=== PATIENT | female | born 1990 | race Hispanic/Latino ===

== ENCOUNTER 2020-10-03 18:01 | Emergency (ER) | payer OTHER ==
[~2020-10-03] VITALS: Ht 160 cm; Wt 80.7 kg
[2020-10-03] MEDS ORDERED: PYRI25TA2 PO (18:07)
[2020-10-03] MEDS ORDERED: PRENTAB7 PO (18:07)
[2020-10-03 19:55] LABS: BASO % 0.2 % (0.0-1.0); EOS % 0.2 % (0.0-3.0); HEMATOCRIT 39.5 % (36.0-47.0); HEMOGLOBIN 13.3 g/dl (12.0-15.5); LYMPH # 1.9 10^3/uL (1.5-5.0); LYMPH % 15.4 % (24.0-44.0); MEAN CORPUSCULAR HEMOGLOBIN 32.2 pg (27.0-33.0); MEAN CORPUSCULAR HGB CONC 33.7 g/dl (32.0-36.5); MEAN CORPUSCULAR VOLUME 95.6 fl (80.0-96.0); MONO # 0.8 10^3/uL (0.0-0.8); MONO % 6.4 % (2.0-8.0); NEUTROPHILS # 9.4 10^3/uL (1.5-8.5); NEUTROPHILS % 77.5 % (36.0-66.0); PLATELET COUNT, AUTOMATED 343 10^3/uL (150-450); RED BLOOD COUNT 4.13 10^6/uL (4.00-5.40); WHITE BLOOD COUNT 12.1 10^3/uL (4.0-10.0)
[2020-10-03 20:34] LABS: BLOOD UREA NITROGEN 8 MG/DL (7-18); CALCIUM LEVEL 9.9 MG/DL (8.5-10.1); CHLORIDE LEVEL 105 MEQ/L (98-107); CREATININE FOR GFR 0.61 MG/DL (0.55-1.30); GLOMERULAR FILTRATION RATE > 60.0 (>60); GLUCOSE, FASTING 92 MG/DL (70-100); SODIUM LEVEL 137 MEQ/L (136-145)
--- NOTE | 2020-10-03 20:35 | REPVR ---
PROCEDURE INFORMATION: Exam: US First Trimester, Transabdominal Exam date and time: 10/03/2020 8:03 PM Age: 29 years old Clinical indication: Pain; Other: Spotting; Gestational age or lmp: 7wks; ; Additional info: 7 weeks ; Pelvic cramping/spotting TECHNIQUE: Imaging protocol: Real-time transabdominal obstetrical ultrasound of the maternal pelvis and a first trimester , less than 14 weeks 0 days, with image documentation. COMPARISON: No relevant prior studies available. FINDINGS: Gestation: Single gestational sac demonstrated within the uterus. Single pole measuring 10.1 mm demonstrated. 4 mm yolk sac demonstrated. Embryonic/ heart rate: heart rate 140 bpm. Placenta: Unremarkable. No subchorionic bleed. Amniotic fluid: Amniotic fluid is normal for gestational age. BIOMETRY: Gestational age (AUA): Gestational age is 7 weeks 1 day based on crown-rump length measurement. Gestational age based on LMP of 08/15/2020 is 7 weeks with an BESSY of 05/22/2021. MATERNAL: Uterus: Unremarkable. Cervix: Unremarkable. Right adnexa: Unremarkable. Left adnexa: Unremarkable. Intraperitoneal space: No intraperitoneal free fluid. IMPRESSION: Unremarkable 1st trimester scan as described above. Detailed structural survey can be performed between 19-20 weeks if clinically desired. Electronically signed by: Tramaine Rojo On 10/03/2020 20:36:07 PM
[2020-10-03 20:42] LABS: CARBON DIOXIDE LEVEL 24 MEQ/L (21-32)
[2020-10-03] MEDS ORDERED: MACR100C43 PO (21:17)
[2020-10-03 21:26] VITALS: BP 110/62
== END 2020-10-03 21:27 | disposition home or self-care (01) ==
LOC: M ED 18:01
DX: O20.0 Threatened abortion (principal); Z3A.01 Less than 8 weeks gestation of pregnancy; Z88.0 Allergy status to penicillin

== ENCOUNTER 2020-10-05 11:43 | Emergency (ER) | payer OTHER ==
[~2020-10-05] VITALS: Ht 160 cm; Wt 80.4 kg
[~2020-10-05 11:43] MED LIST: MACR100C43 PO; PRENTAB7 PO; PYRI25TA2 PO
[2020-10-05 13:16] LABS: BASO % 0.1 % (0.0-1.0); EOS % 0.1 % (0.0-3.0); HEMATOCRIT 40.4 % (36.0-47.0); HEMOGLOBIN 13.4 g/dl (12.0-15.5); LYMPH # 2.2 10^3/uL (1.5-5.0); MEAN CORPUSCULAR HEMOGLOBIN 32.4 pg (27.0-33.0); MEAN CORPUSCULAR HGB CONC 33.2 g/dl (32.0-36.5); MEAN CORPUSCULAR VOLUME 97.8 fl (80.0-96.0); MONO # 0.7 10^3/uL (0.0-0.8); MONO % 6.4 % (2.0-8.0); NEUTROPHILS # 8.1 10^3/uL (1.5-8.5); PLATELET COUNT, AUTOMATED 361 10^3/uL (150-450); RED BLOOD COUNT 4.13 10^6/uL (4.00-5.40)
[2020-10-05 14:08] LABS: BLOOD UREA NITROGEN 9 MG/DL (7-18); CALCIUM LEVEL 9.5 MG/DL (8.5-10.1); CARBON DIOXIDE LEVEL 25 MEQ/L (21-32); CHLORIDE LEVEL 105 MEQ/L (98-107); CREATININE FOR GFR 0.56 MG/DL (0.55-1.30); GLOMERULAR FILTRATION RATE > 60.0 (>60); GLUCOSE, FASTING 85 MG/DL (70-100); HCG, SERUM QUANTITATIVE 68982 MIU/ML; POTASSIUM SERUM 4.1 MEQ/L (3.5-5.1); SODIUM LEVEL 137 MEQ/L (136-145)
--- NOTE | 2020-10-05 15:25 | REP ---
INDICATION: vaginal bleeding (auger machine offbearer request repeat US). COMPARISON: 10/03/2020. TECHNIQUE: Real-time sonographic evaluation of gravid uterus performed. FINDINGS: There is a single living intrauterine gestation. The estimated gestational age is 7 weeks 4 days based on a crown-rump length of 14 mm, EDC 05/20/2021. heart rate is 158 beats per minute. There is no subchorionic hemorrhage. No definite maternal adnexal region abnormality is seen. IMPRESSION: Viable intrauterine gestation 7 weeks 4 days gestational age, heart rate 150 beats per minute. No subchorionic hemorrhage. <Electronically signed by Femi Ziegler > 10/05/20 [id number]
[2020-10-05 15:52] VITALS: BP 128/71
[2020-10-05 17:07] LABS: CHLAMYDIA DNA AMPLIFICATION NEGATIVE (NEGATIVE); GC DNA AMPLIFICATION NEGATIVE (NEGATIVE)
== END 2020-10-05 15:52 | disposition home or self-care (01) ==
LOC: M ED 11:43
DX: O26.859 Spotting complicating pregnancy, unspecified trimester (principal); Z88.0 Allergy status to penicillin; Z3A.01 Less than 8 weeks gestation of pregnancy

== ENCOUNTER 2020-11-22 11:46 | Emergency (ER) | payer OTHER ==
[~2020-11-22] VITALS: Ht 160 cm; Wt 81.4 kg
[2020-11-22 11:46] VITALS: BP 121/70
[2020-11-22 13:40] LABS: BASO % 0.2 % (0.0-1.0); EOS % 0.3 % (0.0-3.0); HEMATOCRIT 38.1 % (36.0-47.0); HEMOGLOBIN 12.9 g/dl (12.0-15.5); LYMPH # 2.2 10^3/uL (1.5-5.0); LYMPH % 18.5 % (24.0-44.0); MEAN CORPUSCULAR HEMOGLOBIN 32.8 pg (27.0-33.0); MEAN CORPUSCULAR HGB CONC 33.9 g/dl (32.0-36.5); MEAN CORPUSCULAR VOLUME 96.9 fl (80.0-96.0); MONO # 0.7 10^3/uL (0.0-0.8); MONO % 6.1 % (2.0-8.0); NEUTROPHILS # 8.8 10^3/uL (1.5-8.5); NEUTROPHILS % 74.6 % (36.0-66.0); PLATELET COUNT, AUTOMATED 346 10^3/uL (150-450); RED BLOOD COUNT 3.93 10^6/uL (4.00-5.40); WHITE BLOOD COUNT 11.8 10^3/uL (4.0-10.0)
[2020-11-22 14:04] LABS: BLOOD UREA NITROGEN 8 MG/DL (7-18); CALCIUM LEVEL 9.4 MG/DL (8.5-10.1); CARBON DIOXIDE LEVEL 25 MEQ/L (21-32); CHLORIDE LEVEL 105 MEQ/L (98-107); GLOMERULAR FILTRATION RATE > 60.0 (>60); GLUCOSE, FASTING 87 MG/DL (70-100); POTASSIUM SERUM 4.1 MEQ/L (3.5-5.1); SODIUM LEVEL 137 MEQ/L (136-145)
[2020-11-22 14:07] LABS: HCG, SERUM QUALITATIVE POSITIVE (NEGATIVE)
[2020-11-22] MEDS ORDERED: ONDANSETRON 4 MG ORAL DISINTEGRATING TAB PO ONE (17:10)
--- NOTE | 2020-11-22 18:39 | REP ---
INDICATION: R flank pain, 14 wks preg, r/o kidney stone COMPARISON: None TECHNIQUE: Real time solitario scale ultrasound examination using curved array transducer. FINDINGS: Bilateral kidneys are normal in contour, size, echogenicity, and reniform shape. Right kidney measures 11.7 x 5.8 x 6.2 cm with 6 mm nonobstructing calculus. No hydronephrosis, cystic or renal mass lesion. Left kidney measures 10.6 x 5.3 x 6.6 cm without hydronephrosis, nephrolithiasis, cystic or renal mass lesion. Bladder is grossly unremarkable. Ureteral jets were not identified during exam. IMPRESSION: 1. Nonobstructing right renal calculus suggested. 2. No evidence for hydronephrosis. <Electronically signed by Markie Vanegas > 11/22/20 [id number]
--- NOTE | 2020-11-22 18:42 | REP ---
INDICATION: R flank pain, 14 wks preg, pls look at appendix COMPARISON: None. TECHNIQUE: B-mode ultrasound examination along with Doppler evaluation. FINDINGS: Limited ultrasound examination of the right lower quadrant demonstrates no obvious evidence for appendicitis. The right ovary measures 3.3 x 2.5 x 1.4 cm and demonstrates satisfactory flow (RI 0.52), and includes a 1.9 x 1.4 x 1.0 cm complex cyst possibly involuting corpus luteum. IMPRESSION: No evidence for appendicitis. <Electronically signed by Markie Vanegas > 11/22/20 [id number]
== END 2020-11-22 20:08 | disposition home or self-care (01) ==
LOC: M ED 11:46
DX: O26.899 Other specified pregnancy related conditions, unspecified trimester (principal); R10.31 Right lower quadrant pain; Z3A.14 14 weeks gestation of pregnancy; Z88.0 Allergy status to penicillin
CPT/HCPCS: 36415; 76775; 76857; 80048; 81001; 84703; 85025; 87086; 99282; Q0162

== ENCOUNTER 2021-04-12 16:27 | Outpatient (CLI) | payer OTHER ==
[~2021-04-12] VITALS: Ht 160 cm; Wt 95.4 kg
[2021-04-12 16:41] VITALS: BP 136/83
[2021-04-12] MEDS ORDERED: LR 1,000 ML IV ONE (17:30)
[2021-04-12] MEDS ORDERED: cefTRIAXone SOD 1 GM in D5W MINI-BAG PLUS 50 ML IV ONE (18:45)
[2021-04-12] MEDS ORDERED: MACR100C43 PO (19:18)
--- NOTE | 2021-04-12 19:37 | IPNPDOC ---
Text Note Date of Service The patient was seen on 04/12/21. NOTE Vital Signs Label Value Date Time Pulse 104 04/12/21 1641 Blood Pressure Assessment 136/83 (100) 04/12/21 1641 Source Automatic Cuff (NIBP) Item Value Date Time Urine Color YELLOW 04/12/21 1700 Urine Appearance HAZY 04/12/21 1700 Urine pH 7.0 UNITS 04/12/21 1700 Urine Specific [place] 1.004 04/12/21 1700 Urine Protein NEGATIVE mg/dL 04/12/21 1700 Urine Glucose (UA) NEGATIVE mg/dL 04/12/21 1700 Urine Ketones NEGATIVE mg/dL 04/12/21 1700 Urine Blood NEGATIVE 04/12/21 1700 Urine Nitrite NEGATIVE 04/12/21 1700 Urine Bilirubin NEGATIVE 04/12/21 1700 Urine Urobilinogen 0.2 mg/dL 04/12/21 1700 Urine Leukocyte Esterase 3+ H 04/12/21 1700 Urine WBC (Auto) 64 /HPF H 04/12/21 1700 Urine RBC (Auto) 2 /HPF 04/12/21 1700 Urine Hyaline Casts (Auto) 0 /LPF 04/12/21 1700 Urine Bacteria (Auto) 2+ H 04/12/21 1700 Urine Squamous Epithelial Cells 2 /HPF 04/12/21 1700 04/12/211999 PATIENT 30 YO SEEN IN TRIAGE COMPLAINTS OF VAGINAL DISCHARGE GREEN BUT NOT HAVING IT NOW . DENIES SROM NO VAGINAL BLEEDING NO CONTRACTIONS RISK FACTORS KIDNEY STONE HISTORY FREQUENT UTI PREVIOUS CS AT 42 WEEKS PHYSICAL EXAMINATION NO ACUTE DISTRESS CATEGORY 1 STRIP NO CONTRACTIONS NO DECELERATIONS MODERATE VARIABILITY . CONSENT STERILE EXAMINATION NO EVIDENCE GREEN DISCHARGE CERVIX CLOSED CULTURES FOR G AND C STREP B . NO EVIDENCE SROM URINE SHOWS EVIDENCE OF UTI PLAN IV ANTIBIOTICS TO FOLLOW WITH ORAL MEDICATION AND AGUILAR POST MEDICATION PATIENT EXPRESSED UNDERSTANDING . WILL BE DISCHARGED POST IV ANTIBIOTICS PATIENT DISCHARGED UNDELIVERED Jose Eldridge MD Apr 12, 2021 19:30
== END 2021-04-12 19:45 | disposition home or self-care (01) ==
LOC: M LDO 16:27
PROVIDERS: ATTEND Obstetrics & Gynecology
DX: O26.899 Other specified pregnancy related conditions, unspecified trimester (principal); O34.219 Maternal care for unspecified type scar from previous cesarean delivery; Z3A.00 Weeks of gestation of pregnancy not specified
CPT/HCPCS: 59025; 81001; 87081; 87086; 87110; 87186; 96365; G0378; G0463; J0696

== ENCOUNTER 2021-05-11 09:14 | Inpatient (IN) | payer OTHER ==
[2021-05-11] VITALS (8 sets, daily range): BP systolic 130–169; BP diastolic 75–96
[~2021-05-11] VITALS: Ht 160 cm; Wt 97.8 kg
--- OUTSIDE RECORDS SUMMARY | 2021-05-11 09:44 | CCD ---
Author Author [facility] Organization [facility] Address Unknown Phone Unavailable Care Team Providers Care Adventure Challenge Instructor Name Role Phone NosalAlicia MD Unavailable Unavailable Nosal, Alicia Yo MD Unavailable Unavailable Nosal, Alicia Yo MD Unavailable Unavailable Nosal, Alicia Yo MD Unavailable Unavailable NosalAlicia MD Unavailable Unavailable Nosal, Alicia Yo MD Unavailable Unavailable NosalAlicia MD Unavailable Unavailable NosalAlicia MD Unavailable Unavailable Nosal, Alicia Yo MD Unavailable Unavailable Nosal, Alicia Yo MD Unavailable Unavailable Corina Malone Unavailable + Corina Malone Unavailable Corina Malone Unavailable + Cristina Casey Unavailable Unavailable Pumarol, Alba Unavailable Pumarol, Alba Unavailable Pumarol, Alba Unavailable Pumarol, Alba Unavailable Pumarol, Alba Unavailable Pumarol, Alba Unavailable Pumarol, Alba Unavailable TESTING, CAMILLE LINN Unavailable Unavailable NURSING, KAVEH Unavailable Unavailable CAMEAUMARLEY Unavailable Unavailable Re-disclosure Warning The records that you are about to access may contain information from federally-assisted alcohol or drug abuse programs. If such information is present, then the following federally mandated warning applies: This information has been disclosed to you from records protected by federal confidentiality rules (42 CFR part 2). The federal rules prohibit you from making any further disclosure of this information unless further disclosure is expressly permitted by the written consent of the person to whom it pertains or as otherwise permitted by 42 CFR part 2. A general authorization for the release of medical or other information is NOT sufficient for this purpose. The Federal rules restrict any use of the information to criminally investigate or prosecute any alcohol or drug abuse patient.The records that you are about to access may contain highly sensitive health information, the redisclosure of which is protected by Article 27-F of the [facility] Public Health law. If you continue you may have access to information: Regarding HIV / AIDS; Provided by facilities licensed or operated by the [facility] Office of Mental Health; or Provided by the [facility] Office for People With Developmental Disabilities. If such information is present, then the following [facility] mandated warning applies: This information has been disclosed to you from confidential records which are protected by state law. State law prohibits you from making any further disclosure of this information without the specific written consent of the person to whom it pertains, or as otherwise permitted by law. Any unauthorized further disclosure in violation of state law may result in a fine or residential sentence or both. A general authorization for the release of medical or other information is NOT sufficient authorization for further disc losure. Encounters Encounter Providers Location Date Indications Data Source(s ) Outpatient Attender: Sanaz Uribe MD 08/06/2020 01:47:14 AM EST [facility] Patient admitted. Outpatient Attender: Corina Malone 07/23/2020 12:27:51 PM EST [facility] Patient admitted. Outpatient Attender: Cristina Casey 06/25/2020 03:57:10 PM EST [facility] Patient admitted. Outpatient Attender: KAVEH BRUNER 09/2020 03:05:57 PM EST - 06/25/2020 07:34:13 PM EST [facility] Patient admitted. Outpatient Attender: Cheyenne Cummings 06/07/2020 04:59:[address] [facility] Patient admitted. Outpatient Attender: Cheyenne Cummings 06/07/2020 10:20:[address] [facility] Patient admitted. Outpatient Attender: MARLEY WADE 06/06/2020 03:40:08 PM EST [facility] Patient admitted. Outpatient Attender: KAVEH MCLAUGHLIN 05/22 10:18:09 AM EST - 06/05/2020 10:35:39 AM EST [facility] Patient admitted. Outpatient Attender: Cristina Casey 06/05/2020 09:07:15 AM EST [facility] Patient admitted. Outpatient Attender: Corina Malone 04/20/2020 11:39:13 AM EDT [facility] Patient admitted. Immunizations Vaccine Date Status Description Data Source(s) 06/05/2020 12:00:00 AM EST completed <td I D="[id number]">Tuberculin Test</td><td>06/05/2020, 10/23/2016</td><td></td> [facility] Medications No Information Insurance Providers Payer name Policy type / Coverage type Policy ID Covered democrat ID Covered democrat's relationship to collier Policy Collier Plan Information [facility]NA [facility] [id number] Child [id number] [facility] [id number] Self [id number] [facility] [id number] Self [id number] [facility] [id number] Self [id number] [facility] [id number] Self [id number] [facility] Medicaid Mgd Care 156 xxxxxxxx 156 [facility] Medicaid Mgd Care 156 [id number] 156 [employer] [id number] Self [id number] [facility] [id number] Self [id number] [facility] [id number] Self [id number] [employer] Medicaid Mgd Care 156 [id number] 156 [employer] Medicaid Mgd Care 156 [id number] 156 [facility] [id number] Self [id number] [facility] [id number] Self [id number] [facility] [id number] Self [id number] [facility] POS/EPO [id number] [phone] [phone] [facility] POS/EPO [id number] xxxxxxxxx [phone] [employer] [id number] Self [id number] [employer] Medicaid Mgd Care [id number] [employer] Medicaid Mgd Care 156 [id number] 156 [employer] [id number] Self [id number] [employer] Medicaid Mgd Care 156 xxxxxxxx 156 [employer] Medicaid Mgd Care 156 xxxxxxxx 156 [facility] Indemnity [phone] [facility] [id number] Problems, Conditions, and Diagnoses Code Display Name Description Problem Type Effective Dates Data Source(s) Z23 Encounter for immunization Encounter for immunization Diagnosis 08/06/2020 01:47:14 AM EST [facility] Dental Filling Dental Filling Diagnosis 06/25/2020 03:57: 10 PM EST [facility] Z20.822 Contact with and (suspected) exposure to covid-19 Contact with and (suspected) exposure to covid-19 Diagnosis 06/25/2020 03:05:57 PM EST [facility] PPD Reading PPD Reading Diagnosis 06/07/2020 04:59:45 PM EST [facility] Follow-up for: Follow-up for: Diagnosis 06/06/2020 03:40: 08 PM EST [facility] Z11.1 Encounter for screening for respiratory tuberculosis Encounter for screening for respiratory tuberculosis Diagnosis 06/05/2020 10:18:09 A M EST [facility] Z02.9 Encounter for administrative examination s, unspecified Encounter for administrative examinations, unspecified Diagnosis 06/05/2020 10:18:09 AM EST [facility] Comp Exam (Comprehensive Exam) Comp Exam (Comprehensiv e Exam) Diagnosis 06/05/2020 09:07:15 AM EST [facility] Cleaning Cleaning Diagnosis 06/05/2020 09:07:15 AM ES T [facility] Surgeries/Procedures Procedure Description Date Indications Data Source(s) 3 O RESIN COMPOS - 1 SURFACE POSTERIOR <td>3 O RESIN C OMPOS - 1 SURFACE POSTERIOR</td><td>Routine</td><td>06/25/2020 4:00 PM EST</td><td></td><td></td> 06/25/2020 04:00:00 PM EST [facility] PPD-TB INTRADERMAL TEST <td>PPD-TB INTRADERMAL TEST</td><td>Routine</td><td>06/05/2020 10:29 AM EST</td><td> Screening examination for pulmonary tuberculosis</td><td></td> 06/05/2020 10:29:16 AM EST Screening examination for pulmonary tuberculosis [facility] Screening examination for pulmonary tube rculosis ORAL HYGIENE INSTRUCTIONS <td>ORAL HYGIENE INSTRUCTIONS</td><td>Routine</td><td>06/05/2020 9:30 AM EST</td><td> Encounter for dental examination and cleaning without abnormal findings</td><td></td> 06/05/2020 09:30:00 AM EST Encounter for dental examination and cleaning without abnormal findings [facility] Encounter for dental examination and magda aning without abnormal findings DENTAL PROPHYLAXIS ADULT (AGES 13 AND UP) <td>DENTAL P ROPHYLAXIS ADULT (AGES 13 AND UP)</td><td>Routine</td><td>06/05/2020 9:30 AM EST</td><td> Encounter for dental examination and cleaning without abnormal findings</td><td></td> 06/05/2020 09:30:00 AM EST Encounter for dental examination and cleaning without abnormal findings [facility] Encounter for dental examination and magda aning without abnormal findings BITEWINGS - FOUR RADIOGRAPHC IMAGES <td>BITEWINGS - FO UR RADIOGRAPHC IMAGES</td><td>Routine</td><td>06/05/2020 9:30 AM EST</td><td> Encounter for dental examination and cleaning without abnormal findings</td><td></td> 06/05/2020 09:30:00 AM EST Encounter for dental examination and cleaning without abnormal findings [facility] Encounter for dental examination and magda aning without abnormal findings IO-PERIAPICAL EA ADD RADIOGRPH IMAG <td>IO-PERIAPICAL EA ADD RADIOGRPH IMAG</td><td>Routine</td><td>06/05/2020 9:30 AM EST</td><td> Encounter for dental examination and cleaning without abnormal findings</td><td></td> 06/05/2020 09:30:00 AM EST Encounter for dental examination and cleaning without abnormal findings [facility] Encounter for dental examination and magda aning without abnormal findings IO-PERIAPICAL 1ST RADIOGRAPHC IMAGE <td>IO-PERIAPICAL 1ST RADIOGRAPHC IMAGE</td><td>Routine</td><td>06/05/2020 9:30 AM EST</td><td> Encounter for dental examination and cleaning without abnormal findings</td><td></td> 06/05/2020 09:30:00 AM EST Encounter for dental examination and cleaning without abnormal findings [facility] Encounter for dental examination and magda aning without abnormal findings COMP ORAL EVALUATION - NEW/EST PT <td>COMP ORAL EVALUA TION - NEW/EST PT</td><td>Routine</td><td>06/05/2020 9:30 AM EST</td><td> Encounter for dental examination and cleaning without abnormal findings</td><td></td> 06/05/2020 09:30:00 AM EST Encounter for dental examination and cleaning without abnormal findings [facility] Encounter for dental examination and magda aning without abnormal findings 31 O AMALGAM FILLING <td>31 O AMALGAM FILLING</td ><td>Routine</td><td>06/05/2020 12:00 AM EST</td><td></td><td></td> 06/05/2020 12:00:00 AM EST [facility] 30 O AMALGAM FILLING <td>30 O AMALGAM FILLING</td ><td>Routine</td><td>06/05/2020 12:00 AM EST</td><td></td><td></td> 06/05/2020 12:00:00 AM EST [facility] Results ID Date Data Source [id number] 08/04/2020 05:30:00 PM EST [facility] Name Value Range Interpretation Code Description Data Vira rce(s) Supporting Document(s) SARS-CoV-2 (COVID-19) Ag [Presence] in R espiratory specimen by Rapid immunoassay Not Detected [facility] This lab was ordered by [facility] and reported by [facility]. ID Date Data Source [id number] 06/27/2020 03:34:00 AM EST [facility] Name Value Range Interpretation Code Description Data Vira rce(s) Supporting Document(s) andGDT U [facility] NOVEL CORONAVIRUS COVID-19 NASOPHARYNX Not Detected Not Detected [facility] NOTE: Please consider re-collection of a new specimen, if clinically indicated. NOTE: The COVID-19 assay is under Emergency Use Authorization (EUA) by theU.S. Food and Drug Administration. [employer] and [facility] aredesignated as high complexity laboratories by the Clinical LaboratoryImprovement Amendments of 1988(CLIA) and are qualified to perform this test.ASSAY INFORMATION: Real Time RT-PCR ID Date Data Source [id number] 06/25/2020 04:52:06 PM EST [facility] Reason for Visit and Comments: Dental Filling [1426]Cristina Casey DDS 06/25/2020 4:52 PM SignedI have identified this patient to be Didi Donald, -1990.Chief ComplaintPatient presents with Dental FillingThere were no vitals filed for this visit.HPIThe following portions of the patient s chart were reviewed in this encounterand updated as appropriate:Procedures performed today:Dental procedures in this visit D2391 - RESIN COMPOS - 1 SURFACE POSTERIOR 3 O (Completed) Service provider: Cristina Casey DDS Billing provider: Cristina Casey DDSRESTORATION PROCEDURE NOTEProcedure Date: 1Performed by: DEION Boothistory of Present Illness:Teeth Involved: #3 caries occlusal into dentinTime Out Called: The risks, benefits, indications, potential complications, andalternatives were explained to the patient and informed consent was obtained.Description of Operation/Procedure:(if appropriate) Plan to manage patient s pain: N/AAnesthetic used: yes - Lidocaine-epinephrine 2 % -1:[id number], 1.0 carpule/sadministered to upper right as submucosal InfiltrationIsolation Type: cotton rollPreparation: Caries excavatedComposite Procedure note:Therapeutic Liner: [place]-LiteEtchant: NoneBonding Agent: OptibondComposite: TPH, Shade [id number] procedure: Polished and burnished. Contacts checked with floss.Occlusion checked and adjusted as needed.Post-op instructions: verbal instructions given.Comments about teeth treated today: Prep deep in occlusalNV: CompositePrescriptions as of 06/25/2020 COMPRESSION STOCKING BK18-30 Use daily. Doxylamine Succinate, Sleep, 25 MG Oral Tab Take ONE tablet (25 mg total) by mouth every 8 (eight) hours Elastic Bandages & Supports (MEDICAL COMPRESSION STOCKINGS) Does not applyMisc Dispense as covered by patient s insurance [facility]. Devices (SITZ BATH) Does not apply Mis Fill bin and solution bag with warm water, apply for 10-15 minutes and pat dry. Use as instructed. Nicotine 21 MG/24HR Transdermal PATCH [address] ONE patch (21 mg total) on the skin daily Norethindrone, Contraceptive, 0.35 MG Oral Tab Take ONE tablet (0.35 mg total) by mouth daily 27-0.8 MG Oral Tab Take ONE tablet by mouth daily Please dispense any vitamin covered by patient s insurance. PROCTOSOL HC 2.5 % Rectal Cream Psyllium 28.3 % Oral Powder Take 1 Package by mouth 2 (two) times a day pyridoxine 25 MG Oral tablet Take ONE tablet (25 mg total) by mouth every 8 (eight) hours as needed (nausea during )Allergies As of Date: 06/25/2020 Noted Allergy ReactionDELETED: PENICILLAMINE 12/11/2012PENICILLINS 10/23/2016 1 - Rash Comments: hivesDate Reviewed: 04/08/2019Reviewed by: Cindy Wolf MD (R) - Reviewed Historical Information Past Medical and Surgical HistoryMedical And Surgical History Item DateKidney disease 2017 Comments: kidney stonecholey lap 05/2012HX EYE SURGERY Comments: lazy eye as child. bilateral.HX CHOLECYSTECTOMYFamily History Problem Relation Age of Onset Diabetes Paternal Grandfather Stroke Father Diabetes Paternal AuntFamily Status - Relation Status Age at Paternal Grandfather Father Alive Paternal Aunt Alive Mother Alive Daughter AliveSocial History Marital Status: Spouse: Years of Education: 15 # children: 0Social History Narrative 10/13/17 Lives with mom Not currently working In college 1 semester left Studying psychology and sociology - wants to be a teacherSocial History Topics Tobacco Use: Never Alcohol Use: No Drug Use: No Sexually Active: Yes Partners with: Male Control/Protection: Pill, None Comment: 1 partnerImmunizations Administered DTP- Diphtheria,tetanus toxoids and* 02/20/1992 04/04/1992 03/04/1993 12/24/1993 DTaP- Diphtheria tetanus toxoids a* 10/19/1996 Hepatitis B Vaccine,pediatric/adol* 1990 01/23/199205/29 Hib, Unspecified Formulation 02/20/1992 04/04/1992 Human papilloma virus vaccine,quad* 08/10/2007 03/22/2008 12/08/2008 Influenza Virus Vaccine,live,atten* 05/10/2008 Influenza Virus Vaccine,whole Virus 03/08/2010 Influenza, Injectable,(cciiv4), Qu* 05/12/2017 Influenza, Seasonal, Injectable 04/05/2019 MMR 05/06/1993 10/19/1996 Menactra-Meningococcal polysacchar* 08/10/2007 OPV 02/20/1992 04/04/1992 03/04/1993 12/24/1993 10/19/1996 OPV, Trivalent Poliovirus Vaccine,* 02/20/1992 04/04/1992 03/04/1993 12/24/1993 10/19/1996 Tdap 08/24/2009 01/06/2019 Tuberculin Test 10/23/2016 06/05/2020 Name Value Range Interpretation Code Description Data Vira rce(s) Supporting Document(s) ID Date Data Source [id number] 06/25/2020 12:00:00 AM EST [facility] Name Value Range Interpretation Code Description Data Vira rce(s) Supporting Document(s) SARS-CoV-2 (COVID-19) RNA [Presence] in Respiratory specimen by BRIAN with probe detection Not Detected [facility] This lab was ordered by [facility] and reported by [employer] ID Date Data Source [id number] 06/07/2020 04:57:00 PM EST [facility] Patient presents for PPD reading. PPD re sults negative 0 x 0 mm, no redness or induration noted. Name Value Range Interpretation Code Description Data Vira rce(s) Supporting Document(s) TUBERCULIN, INTRADERMAL (PPD) 0x0mm [facility] ID Date Data Source [id number] 06/05/2020 01:43:07 PM EST [facility] Reason for Visit and Comments: Cleani ng [1427] Comp Exam (Comprehensive Exam) [1471]Vitals (Last Filed):BP 108/72 Pulse 97 Temp 97.4 F (36.3 C) (Oral)Cristina Casey DDS 06/05/2020 1:43 PM SignedDental procedures in this visit D0150 - COMP ORAL EVALUATION - NEW/EST PT (Completed) Service provider: Cristina Casey DDS Billing provider: Cristina Casey DDS D1110 - DENTAL PROPHYLAXIS ADULT (Completed) Service provider: Cristina Casey DDS Billing provider: Cristina Casey DDS D1330 - ORAL HYGIENE INSTRUCTIONS (Completed) Service provider: Cristina Casey DDS Billing provider: Cristina Casey DDS D0220 - IO-PERIAPICAL 1ST RADIOGRAPHC IMAGE (Completed) Service provider: Cristina Casey DDS Billing provider: Cristina Casey DDS D0230 - IO- PERIAPICAL EA ADD RADIOGRPH IMAG (Completed) D0274 - BITEWINGS - FOUR RADIOGRAPHC IMAGES (Completed) Service provider: Cristina Casey DDS Billing provider: Cristina Casey DDSSubjectiveI have identified this patient to be BELTRAN Campuzano -1990.Chief ComplaintPatient presents with Cleaning Comp Exam (Comprehensive Exam)RadioHPIThe following portions of the patient s chart were reviewed in this encounterand updated as appropriate: .ObjectiveDental Soft Tissue Exam : Generalized moderate gingivitis.Radiographic Interpretation/Hard Tissue Exam:Associated radiographs for today s visit were reviewed and findings werediscussed with the patient.Notable findings: interproximal cariesRefer to tooth chart for additional findings.Perio: Perio diagnosis: moderate gingivitis Perio treatment recommendations: Scaling and Root Planning Recommended Recare Interval: Every 6 months.TMJ EvaluationWithin Normal LimitsTreatment: Comp exam, Prophy, OHI given.NV: CompositePrescriptions as of 06/05/2020 COMPRESSION STOCKING BK18-30 Use daily. Doxylamine Succinate, Sleep, 25 MG Oral Tab Take ONE tablet (25 mg total) by mouth every 8 (eight) hours Elastic Bandages & Supports (MEDICAL COMPRESSION STOCKINGS) Does not applyMisc Dispense as covered by patient s insurance [facility]. Devices (SITZ BATH) Does not apply Mis Fill bin and solution bag with warm water, apply for 10-15 minutes and pat dry. Use as instructed. Nicotine 21 MG/24HR Transdermal PATCH [address] ONE patch (21 mg total) on the skin daily Norethindrone, Contraceptive, 0.35 MG Oral Tab Take ONE tablet (0.35 mg total) by mouth daily 27-0.8 MG Oral Tab Take ONE tablet by mouth daily Please dispense any vitamin covered by patient s insurance. PROCTOSOL HC 2.5 % Rectal Cream Psyllium 28.3 % Oral Powder Take 1 Package by mouth 2 (two) times a day pyridoxine 25 MG Oral tablet Take ONE tablet (25 mg total) by mouth every 8 (eight) hours as needed (nausea during )Allergies As of Date: 06/05/2020 Noted Allergy ReactionDELETED: PENICILLAMINE 12/11/2012PENICILLINS 10/23/2016 1 - Rash Comments: hivesDate Reviewed: 04/08/2019Reviewed by: Cindy Wolf MD - Reviewe d (R) Historical Information Past Medical and Surgical HistoryMedical And Surgical History Item DateKidney disease 2017 Comments: kidney stonecholey lap 12/2012HX EYE SURGERY Comments: lazy eye as child. bilateral.HX CHOLECYSTECTOMYFamily History Problem Relation Age of Onset Diabetes Paternal Grandfather Stroke Father Diabetes Paternal AuntFamily Status - Relation Status Age at Paternal Grandfather Father Alive Paternal Aunt Alive Mother Alive Daughter AliveSocial History Marital Status: Spouse: Years of Education: 15 # children: 0Social History Narrative 10/13/17 Lives with mom Not currently working In college 1 semester left Studying psychology and sociology - wants to be a teacherSocial History Topics Tobacco Use: Never Alcohol Use: No Drug Use: No Sexually Active: Yes Partners with: Male Control/Protection: Pill, None Comment: 1 partnerImmunizations Administered DTP- Diphtheria,tetanus toxoids and* 02/20/1992 04/04/1992 03/04/1993 12/24/1993 DTaP- Diphtheria tetanus toxoids a* 10/19/1996 Hepatitis B Vaccine,pediatric/adol* 1990 01/23/1992 05/29/1992 Hib, Unspecified Formulation 02/20/1992 04/04/1992 Human papilloma virus vaccine,quad* 08/10/2007 03/22/2008 12/08/2008 Influenza Virus Vaccine,live,atten* 05/10/2008 Influenza Virus Vaccine,whole Virus 03/08/2010 Influenza, Injectable,(cciiv4), Qu* 05/12/2017 Influenza, Seasonal, Injectable 04/05/2019 MMR 05/06/1993 10/19/1996 Menactra-Meningococcal polysacchar* 08/10/2007 OPV 02/20/1992 04/04/1992 03/04/1993 12/24/1993 10/19/1996 OPV, Trivalent Poliovirus Vaccine,* 02/20/1992 04/04/1992 03/04/1993 12/24/1993 10/19/1996 Tdap 08/24/2009 01/06/2019 Tuberculin Test 10/23/2016 06/05/2020 Name Value Range Interpretation Code Description Data Vira rce(s) Supporting Document(s) Procedure Social History Code Duration Value Status Description Data Source(s ) Alcohol intake 04/20/2020 12:00:00 AM EDT Current non-d hilary of alcohol (finding) completed Current non-drinker of alcohol (finding) [facility] Tobacco use and exposure 04/20/2020 12:00:00 AM EDT Never used co mpleted Never used [facility] Smoking 04/20/2020 12:00:00 AM EDT Never smoker completed Never s vikas [facility] Vital Signs ID Date Data Source UNK Name Value Range Interpretation Code Description Data Source(s) Systolic blood pressure 108 mm[Hg] 108 mm[Hg] [facility] Diastolic blood pressure 72 mm[Hg] 72 mm[Hg] [facility] Heart rate 97 /min 97 /min [facility] Body temperature 36.33 Ciara 36.33 Ciara [facility]
[2021-05-11] MEDS ORDERED: LACTATED RINGER'S 1000 ML IV STA (09:51)
[2021-05-11] MEDS ORDERED: BICITRA 30ML SOLN UDC PO ONE (09:55)
[2021-05-11] MEDS ORDERED: OXYTOCIN DRIP 30 UNITS in IV 1 EA IV PRN (09:55)
[2021-05-11 10:22] LABS: HEMATOCRIT 31.5 % (36.0-47.0); MEAN CORPUSCULAR HEMOGLOBIN 29.1 pg (27.0-33.0); MEAN CORPUSCULAR HGB CONC 31.7 g/dl (32.0-36.5); MEAN CORPUSCULAR VOLUME 91.6 fl (80.0-96.0); PLATELET COUNT, AUTOMATED 286 10^3/uL (150-450); RED BLOOD COUNT 3.44 10^6/uL (4.00-5.40); WHITE BLOOD COUNT 14.3 10^3/uL (4.0-10.0)
[2021-05-11] MEDS ORDERED: PEPC10TA6 PO (10:24)
[2021-05-11] MEDS ORDERED: HOME MED LIST COMPLETE! XX SCH (10:25)
--- NOTE | 2021-05-11 10:55 | HPEPDOC ---
Obstetrical History & Physical General Date of Admission May 11, 2021 at 09:40 History of Present Illness 30yo yayo [id number] @38+2 presenting to triage for c/o regular contractions and spotting, denies bleeding, LOF, states frequent FM. States continued desire for repeat and tubal ligation. Chief Complaint: Contractions, term, section (desires repeat) Information Provided By: Patient Age: 30 : 2 Term: 1 Pre-term: 0 Abortions: 0 Livin Care Care: Good Care Dating Final EDC: May 22, 2021 Final EDC for Daily Update: May 22, 2021 Final EDC by: LMP LMP: Aug 15, 2020 EGA at Admission: 38 (+2) Antepartum Course Diagnos(e)s prior , frequent UTI, migraine headaches Height (inches): 63 Pre- weight (lbs.): 170 Admission Weight (lbs.): 213 Change in Weight (lbs.): 213 Past Medical History Past Obstetrical History : Past Obstetrical History: Multigravida Date of Delivery: Apr 04, 2019 Gestation: 42 Type of Delivery: Ceserean section Complications: No 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: No pertinent history Past Medical History Medical History Frequent UTI, Migraine headaches Surgical History: section, Gallbladder, Other (eye surgery) Family History Significant Family History: Diabetes (PGM), Hypertension (father, PGF), Other (MGF- stroke) Social History Social history spouse and child at home Marital Status: Family situation: Spouse/partner home Psychosocial History: No pertinent psych hx * Smoker: non-smoker Alcohol: Denies Drugs: denies Abuse Violence Screening Have you been hit/kicked/slapp: No Have you been sexually assault: No Imunizations Tdap status: current Influenza Status: needs Allergies Coded Allergies: Penicillins (Verified Allergy, Intermediate, hives, 10/03/20) Medications Scheduled Nitrofurantoin Monohyd/M-Cryst (Macrobid 100 mg Capsule) 100 Mg Capsule, 1 CAP PO BID Pnv No.95/Ferrous Fum/Folic AC ( Vitamins Tablet) 1 Each Tablet, 1 TAB PO DAILY Physical Examination Physical Examination GENERAL: Alert and oriented times three. BREAST: . ABDOMEN: Gravid and non-tender to touch. FETUS: Is vertex (VTX) by sterile vaginal examination (SVE), fetus is vertex (VTX) by Regis. HEART RATE: Regular rate and rhythm. LUNGS: Clear to auscultation (CTA). EXTREMITIES: No edema. No clonus. Deep tendon reflexes (DTRs) + 2. Pertinent Laboratoy Data Blood Type: A+ RBC Antibody Screen: Negative HIV: Negative Hepatitis B: Negative Rapid Plasma Reagin: Nonreactive Rubella: Immune Varicella: Immune Chlamydia/Gonorrhea: Negative Group B Streptococcus: Positive Quad Screen Test: Negative Cystic Fibrosis: Negative Anatomy Ultrasound Placenta Location: Posterior Normal Anatomy: Yes Placenta Previa: No Vaginal Examination Dilation: 4 cm Effacement: 90% Station: -2 Cervical Consistency: Soft Cervical Position: Posterior Presentation: Cephalic presentation Position: Vertex (occiput) Assessment Variability: Moderate Accelerations: Positive Decelerations: None Tocometer Contractions: Yes Frequency: every 2-5 min. Duration: greater than 60 seconds Strength: palpated as moderate, resting tone palp/soft Multi-drug resistant Organism: No history of MDRO Assessment/Plan Assessment Pattie is a 30-year-old (G)2 para (P)1 at 38+2 weeks by 7+4-week ultrasound. Presents to Labor and Delivery (L&D) with c/o contractions. Denies bleeding, LOF, states reassuring movement. Expresses desire for repeat section with tubal ligation. Plan Admit and orient. Diet: NPO. Group B Streptococcus (GBS) positive. Labs and intravenous (IV) per unit protocol. Lactated Ringers (LR): Bolus 1000 mL, then at 125 mL/hr. Consult Dr. Sin for admission plan of care and admission for . Start 2gm Ancef and 500mg azythromycin. Pt may have epidural in preparation for surgery. Care transferred to Dr. Sin for counseling and consent for with tubal ligation. BAO PALOMARES CNM May 11, 2021 10:55
[2021-05-11] MEDS ORDERED: ceFAZolin SOD 2 GM in IV 1 EA IV ONE (11:00)
[2021-05-11] MEDS ORDERED: AZITHROMYCIN INJ 500 MG, VIAL MATE ADAPTER 1 EACH in NS 250 ML IV ONE (11:00)
--- NOTE | 2021-05-11 11:06 | IPNPDOC ---
Text Note Date of Service The patient was seen on 05/11/21. NOTE Patient seen and examined at the bedside. Didi is a 30 yo at 38+2 weeks gestation who presented to L&D in active labor. She has a history of a prior section and strongly desires a repeat c section along with tubal sterilization. We discussed all risks of RLTCS vs TOLAC in detail. We discussed risks and benefits of each. Didi declines TOLAC and strongly desires RLTCS. We discussed all risks of surgery to include, but not limited to, bleeding requiring blood transfusion, risk of infection, risk of injury to bowel, bladder, or structures which could require additional surgery, risk of needing a hysterectomy as a life saving measure, and even risk of and/or maternal . She verbalized understanding of these risks and elected to proceed. We also discussed tubal sterilization in detail to include risk of regret. Didi strongly desires permanent sterilization and desires to proceed with it. Anesthesia notified, Ancef and azithromycin for infectious prophylaxis. orthopedically impaired teacher to the OR. All patient questions answered. Igor Mae, I+Igor MURILLO, I+O Laboratory Tests 05/11/21 10:09 HANNAH JACKSON DO May 11, 2021 11:06
[2021-05-11] MEDS ORDERED: MORPHINE PRES-FREE INJ 10 MG/10 ML VIAL (J2274) As Ordered ONE (11:39)
[2021-05-11] MEDS ORDERED: ONDANSETRON 4MG/2ML VIAL As Ordered ONE (11:39)
[2021-05-11] MEDS ORDERED: OXYTOCIN 30 UNITS IN 0.9% NaCl 500ML IV BAG (J2590) As Ordered ONE (11:40)
[2021-05-11] MEDS ORDERED: NALBUPHINE HCL 10 MG/ML AMP (J2300) IV PRN ×2 (11:48→13:15)
[2021-05-11] MEDS ORDERED: METOCLOPRAMIDE INJ 10MG/2ML VIAL (J2765 PER 1) IV PRN (11:48)
[2021-05-11] MEDS ORDERED: ONDANSETRON 4MG/2ML VIAL IV PRN ×2 (11:48→13:15)
[2021-05-11] MEDS ORDERED: NALOXONE INJ 0.4MG/1ML VIAL (J2310 PER 1MG) IV PRN ×2 (11:48)
[2021-05-11] MEDS ORDERED: PHENYLephrine 500MCG 5ML (100MCG/ML) SYRINGE As Ordered ONE (11:57)
[2021-05-11] MEDS ORDERED: ONDANSETRON 4 MG TAB PO PRN (13:00)
[2021-05-11] MEDS: LR 1,000 ML IV SCH (13:00)
[2021-05-11] MEDS ORDERED: RHOGAM 300 MCG (1500 IU) INJ (J2790) IM SCH (13:00)
[2021-05-11] MEDS ORDERED: MEASLES,MUMPS,RUBELLA VACCINE INJ (MMR-II) (90707) SC SCH (13:00)
[2021-05-11] MEDS ORDERED: SIMETHICONE 80MG CHEW TAB PO PRN (13:00)
[2021-05-11] MEDS ORDERED: oxyCODONE 5MG TAB PO PRN ×3 (13:00→13:15)
[2021-05-11] MEDS ORDERED: OXYTOCIN DRIP 30 UNITS in IV 1 EA IV SCH (13:00)
[2021-05-11] MEDS ORDERED: PROMETHAZINE 25 MG TAB PO PRN (13:00)
[2021-05-11] MEDS ORDERED: KETOROLAC 30 MG/ML 1ML VIAL IV PRN (13:15)
[2021-05-11] MEDS ORDERED: fentaNYL 100 MCG/2 ML INJECTION (J3010) IV PRN (13:15)
[2021-05-11] MEDS ORDERED: LR 1,000 ML IV SCH (13:15)
[2021-05-11] MEDS ORDERED: MEPERIDINE INJ 25 MG/ML VIAL (J2175) IV PRN (13:15)
--- NOTE | 2021-05-11 13:28 | ROOPDOC ---
[facility] Report Of Operation Report of Operation DATE OF PROCEDURE: 05/11/21 PREPROCEDURE DIAGNOSES: 1. 38+3 weeks gestation and active labor 2. History of section, no desire for TOLAC 3. Anemia 4. Obesity. 5. Satisfied parity POSTPROCEDURE DIAGNOSES: Same as above PROCEDURE: Repeat section with bilateral tubal ligation via parkland method SURGEON: Dr. Deandre Jackson AIRFRAME DESIGN ENGINEER: Uyen Lai CNM, whose assistance with exposure, retraction, visualization, and delivery of the was essential to completion of the case ANESTHESIA: Spinal. FLUIDS: 1000 mL lactated Ringer's (LR). URINE OUTPUT: 250 mL. ESTIMATED BLOOD LOSS: 600 mL. COMPLICATIONS: None. ANTIBIOTICS: 2 grams of Ancef and 500 mg of azithromycin. OPERATIVE FINDINGS: Viable female infant found and delivered in cephalic prese ntation. Clear amniotic fluid. weight 3650 grams or 8lbs 1oz. Apgars 9/9. Normal appearing placenta. Normal fallopian tubes and ovaries bilaterally. Tubal ligation performed via parkland method and tubal segments sent to pathology for review. DETAILED PROCEDURE DESCRIPTION: The risks, benefits, indications, and alternatives of the procedure were reviewed with the patient and informed consent was obtained. The patient was taken to the operating room where spinal anesthesia was obtained without difficulty. The patient was then prepped and draped in the usual sterile fashion in the dorsal supine position with a leftward tilt. A surgical time-out was performed in which the patient's identify and planned procedure were verified with the operative team. A Pfannenstiel skin incision was then made with a scalpel and carried through to the underlying layer of fascia. The fascia was incised in the midline and the incision was extended laterally with Brandon scissors. The superior aspect of the fascial incision was grasped with Wyatt clamps, elevated, and the underlying rectus muscles were dissected off with brandon scissors. Attention was then turned to the inferior aspect of this incision, which in a similar fashion, was grasped, tented up with Wyatt clamps, and the rectus muscles were dissected off with Brandon scissors. The rectus muscles were then at the midline. The peritoneum was identified and entered digitally. The peritoneal incision was then extended horizontally and superiorly and the bladder was clearly identified. A Mobius self-containing retractor was then inserted into the abdomen as a means for exposure. The vesicouterine peritoneum was then identified and entered sharply with metzenbaum scissors. This incision was then extended laterally and a bladder flap was created digitally. Next, the lower uterine segment was incised in a transverse fashion with the scalpel. The uterine incision was then extended manually. The amniotic sac was artificially ruptured and this was productive of clear fluid. The infant was in cephalic presentation and the head was delivered without difficulty followed easily by the remainder of the body. The infant's nose and mouth were suctioned with a bulb syringe and the cord was doubly clamped and cut. The was then handed off to the awaiting team. The placenta was then removed manually. The uterus was then cleared of all clots and debris. The uterine incision was then repaired with #0 Monocryl suture in a running locked fashion. Inspection revealed excellent hemostasis. The posterior cul-de-sac was then irrigated to good effect. Attention was then turned to the patient's fallopian tubes. The left fallopian tube was grasped at the isthmic portion with riley clamps. A window in the mesosalpinx underneath this tubal segment was then created with the bovie. Two sutures of plain gut were then used to tie and suture ligate both ends of the tubal segment. The segment was then amputated with metzenbaum scissors and sent to pathology for review. Inspection of the operative site revealed excellent hemostasis. An identical procedure was then performed on the patient's right fallopian tube. Inspection of the operative site revealed excellent hemostasis. The hysterotomy was then again inspected and found to be hemostatic. The paracolic gutters were then inspected and cleared of all clots and debris. The Mobius self-containing retractor was then removed from the abdomen. The peritoneum was then closed with 3-0 vicryl suture in a running fashion. The fascia was closed with #0 Vicryl suture in a running fashion. The subcutaneous fat was closed with #3-0 Vicryl suture in a running fashion. The skin was closed with #4-0 Monocryl suture in a subcuticular fashion. The incision was then dressed with Steri-Strips and an optifoam dressing was applied. At the completion of the case a bimanual exam was performed which revealed good uterine tone and minimal vaginal bleeding. The patient tolerated the procedure well. Sponge, lap, instrument, and needle counts were correct times three. The patient was taken to the recovery room in stable condition. DEANDRE JACKSON DO May 11, 2021 13:28
[2021-05-11] MEDS ORDERED: KETOROLAC 30 MG/ML 1ML VIAL As Ordered ONE (13:58)
[2021-05-11] MEDS: KETOROLAC 30 MG/ML 1ML VIAL IV SCH (20:15)
[2021-05-11] MEDS: ACETAMINOPHEN 500 MG TAB PO PRN (23:57)
[2021-05-12] MEDS: LR 1,000 ML IV SCH (00:36)
[2021-05-12 02:00] VITALS: BP 118/63
[2021-05-12] MEDS: KETOROLAC 30 MG/ML 1ML VIAL IV SCH ×2 (02:03→07:59)
[2021-05-12] MEDS: diphenhydrAMINE 50MG/ML VIAL (J1200) IV PRN ×2 (04:25→08:38)
[2021-05-12 06:00] VITALS: BP 118/63
[2021-05-12 07:40] LABS: HEMATOCRIT 27.3 % (36.0-47.0); HEMOGLOBIN 8.8 g/dl (12.0-15.5); MEAN CORPUSCULAR HEMOGLOBIN 29.6 pg (27.0-33.0); MEAN CORPUSCULAR HGB CONC 32.2 g/dl (32.0-36.5); MEAN CORPUSCULAR VOLUME 91.9 fl (80.0-96.0); PLATELET COUNT, AUTOMATED 240 10^3/uL (150-450); RED BLOOD COUNT 2.97 10^6/uL (4.00-5.40); WHITE BLOOD COUNT 13.6 10^3/uL (4.0-10.0)
[2021-05-12] MEDS: PRENATAL VITAMINS CHEWABLE TABLET PO SCH (07:59)
--- NOTE | 2021-05-12 09:33 | IPNPDOC ---
Progress Note Date of Service: May 12, 2021 Progress Note 30 yo G2 now P2 POD#1 s/p uncomplicated RLTCS with BTL for term active labor with history of prior c section and no desire for TOLAC and satisfied parity. No acute events overnight. This morning Didi reports feeling well. She is ambulating, voiding on her own, tolerating a regular diet. Lochia has been minimal. Pain is well controlled. Vitals - Normotensive, afebrile, non tachycardic Genera - Sitting up in bed, pleasant and conversant. NAD Abdomen - Fundus firm at U-1. No fundal tenderness. Optifoam dressing in place with minimal strikethrough Extremities - Trace edema UO - Excellent Labs: Pre op H/H 10.0/31.5 --> post op this AM 8.8/27.3 Didi is doing well and is making an appropriate / postoperative recovery. Continue routine care. Anticipate DC home tomorrow. All questions answered. Merrick VS, I&O, 24H, Igor Vital Signs/I&O Vital Signs Date Time Temp Pulse Resp B/P (MAP) Pulse Ox O2 Delivery O2 Flow Rate FiO2 05/12/21 06:00 97.1 68 16 118/63 (81) 99 Room Air I&O- Last 24 Hours up to 6 AM 05/12/21 06:00 Intake Total 4800 ml Output Total 2375 ml Balance 2425 ml Laboratory Data 24H LABS Laboratory Tests 2 05/11/21 10:09: Nucleated Red Blood Cells % (auto) 0.0 05/11/21 10:09: Serology Scanned Report Hepatitis B Testing 05/11/21 10:14: Coronavirus (COVID-19)(PCR) NEGATIVE 05/12/21 07:22: Nucleated Red Blood Cells % (auto) 0.0 CBC/BMP Laboratory Tests 05/11/21 10:09 05/12/21 07:22 HANNAH JACKSON DO May 12, 2021 09:33
[2021-05-12 10:16] VITALS: BP 131/61
[2021-05-12] MEDS ORDERED: INFLUENZA QUADRIVALENT PF VACCINE 0.5ML SYRINGE IM ONE (13:00)
[2021-05-12] MEDS: IBUPROFEN 800 MG TAB PO SCH ×2 (15:48→23:16)
[2021-05-12 17:57] VITALS: BP 142/84
[2021-05-12] MEDS: ACETAMINOPHEN 500 MG TAB PO PRN (20:35)
[2021-05-12 21:58] VITALS: BP 137/83
[2021-05-13 02:31] VITALS: BP 119/82
[2021-05-13] MEDS: ACETAMINOPHEN 500 MG TAB PO PRN ×2 (05:03→12:03)
[2021-05-13 06:05] VITALS: BP 125/76
[2021-05-13] MEDS ORDERED: OXYC-517 PO (06:48)
[2021-05-13] MEDS ORDERED: IBUP80TA PO (06:48)
[2021-05-13] MEDS ORDERED: ACET-683 PO (06:48)
--- NOTE | 2021-05-13 06:52 | DS.PDOC ---
Discharge Summary General Date of Admission May 11, 2021 at 09:40 Date of Discharge May 13, 2021 Discharge Summary HOSPITAL COURSE: Didi is a 30 yo G2 now P2 who underwent an uncomplicated RLTCS with BTL on 11May2021 after being admitted for active labor with a history of section and no desire for TOLAC. Her course was unremarkable. She met all appropriate discharge criteria on her day of discharge. She was ambulating without problems, had minimal lochia, had minimal pain, was tolerating PO, was voiding spontaneously, and was passing gas. DISCHARGE MEDICATIONS: Please see below. ALLERGIES: Please see below. PHYSICAL EXAMINATION ON DISCHARGE: VITAL SIGNS: Please see below. GENERAL: AAOX3, sitting up in bed, NAD ABDOMINAL EXAMINATION: Soft, non distended. Fundus firm at U-2. No fundal tenderness. Optifoam dressing in place. Minimal strikethrough. No tenderness to palpation. EXTREMITIES: 1+ edema PSYCHIATRIC EXAMINATION: Affect appropriate LABORATORY DATA: Please see below. ACTIVITY: Pelvic rest for 6 weeks, no heavy lifting for 6 weeks DIET: Regular DISCHARGE PLAN: Discharge home DISPOSITION: Discharge home on 13May2021. DISCHARGE INSTRUCTIONS: 1. Pelvic rest for 6 weeks. 2. No lifting greater than 10 pounds 3. Take your medication as prescribed ITEMS TO FOLLOWUP ON ON OUTPATIENT: 1. Incision check in 2 weeks DISCHARGE CONDITION: Stable. TIME SPENT ON DISCHARGE: Greater than 20 minutes. Hannah Sin DO, FACOG Vital Signs/I&Os Vital Signs Date Time Temp Pulse Resp B/P (MAP) Pulse Ox O2 Delivery O2 Flow Rate FiO2 05/13/21 06:08 18 05/13/21 06:05 97.7 84 125/76 (92) 99 Room Air Laboratory Data Labs 24H Laboratory Tests 2 05/12/21 07:22: Nucleated Red Blood Cells % (auto) 0.0 CBC/BMP Laboratory Tests 05/12/21 07:22 Discharge Medications Scheduled Famotidine (Pepcid AC) 10 Mg Tablet, 1 TAB PO DAILY, (Reported) Ibuprofen (Ibuprofen) 800 Mg Tablet, 800 MG PO Q8H Pnv No.95/Ferrous Fum/Folic AC ( Vitamins Tablet) 1 Each Tablet, 1 TAB PO DAILY, (Reported) Scheduled PRN Acetaminophen (Acetaminophen) 500 Mg Tablet, 1,000 MG PO Q6HP PRN for MILD PAIN (PS 1-4) Oxycodone HCl (Oxycodone HCl) 5 Mg Tablet, 5 MG PO Q6H PRN for MODERATE PAIN (PS 5-7) Allergies Coded Allergies: Penicillins (Verified Allergy, Intermediate, hives, 10/03/20) HANNAH SIN DO May 13, 2021 06:52
[2021-05-13] MEDS: IBUPROFEN 800 MG TAB PO SCH (08:04)
[2021-05-13] MEDS: PRENATAL VITAMINS CHEWABLE TABLET PO SCH (08:04)
== END 2021-05-13 12:58 | disposition home or self-care (01) | DRG 785 ==
LOC: M LDO 09:14 → M LDI 09:40 → M OBS 14:30
PROVIDERS: ADMIT Registered Nurse; ATTEND Registered Nurse
PROC: 0UB70ZZ Excision of Bilateral Fallopian Tubes, Open Approach (ICD-10-PCS; 2021-05-11)
PROC: 10D00Z1 Extraction of Products of Conception, Low, Open Approach (ICD-10-PCS; principal; 2021-05-11 12:57)
DX: O34.211 Maternal care for low transverse scar from previous cesarean delivery (principal); Z37.0 Single live birth; Z3A.38 38 weeks gestation of pregnancy; O99.824 Streptococcus B carrier state complicating childbirth; E66.9 Obesity, unspecified; O99.214 Obesity complicating childbirth; D64.9 Anemia, unspecified; O99.02 Anemia complicating childbirth

== ENCOUNTER 2022-11-06 12:23 | Emergency (ER) | payer OTHER ==
[~2022-11-06] VITALS: Ht 160 cm; Wt 84.7 kg
[~2022-11-06 12:23] MED LIST changes: +ACET-683 PO; +IBUP80TA PO; +OXYC-517 PO; +PEPC10TA6 PO
[2022-11-06] MEDS ORDERED: METOCLOPRAMIDE INJ 10MG/2ML VIAL IV ONE (13:55)
[2022-11-06] MEDS ORDERED: NS 1,000 ML IV ONE (13:55)
[2022-11-06] MEDS ORDERED: GI COCKTAIL 50ML BTL(HYOSCYAMINE/MAALOX/LIDOCAINE VISCOUS)(1:3:1) PO ONE (13:55)
[2022-11-06] MEDS ORDERED: KETOROLAC 30 MG/ML 1ML VIAL IV ONE (13:55)
[2022-11-06] MEDS ORDERED: SUCRALFATE 1 GM TAB PO ONE (13:55)
[2022-11-06 14:23] LABS: BASO % 0.2 % (0.0-1.0); EOS % 0.3 % (0.0-3.0); HEMATOCRIT 40.2 % (36.0-47.0); HEMOGLOBIN 13.4 g/dl (12.0-15.5); LYMPH # 1.9 10^3/uL (1.5-5.0); LYMPH % 19.2 % (24.0-44.0); MEAN CORPUSCULAR HEMOGLOBIN 31.4 pg (27.0-33.0); MEAN CORPUSCULAR HGB CONC 33.3 g/dl (32.0-36.5); MEAN CORPUSCULAR VOLUME 94.1 fl (80.0-96.0); MONO # 0.6 10^3/uL (0.0-0.8); NEUTROPHILS # 7.2 10^3/uL (1.5-8.5); PLATELET COUNT, AUTOMATED 344 10^3/uL (150-450); RED BLOOD COUNT 4.27 10^6/uL (4.00-5.40); WHITE BLOOD COUNT 9.7 10^3/uL (4.0-10.0)
[2022-11-06 14:33] LABS: INR 0.94; PROTHROMBIN TIME 12.8 SECONDS (12.5-14.5)
[2022-11-06 14:34] LABS: PARTIAL THROMBOPLASTIN TIME 32.5 SECONDS (24.8-34.2)
[2022-11-06 14:37] LABS: D-DIMER QUANT 457.62 ng/ml (<500)
[2022-11-06 14:55] LABS: CK-MB VALUE MASS < 1.0 NG/ML (<3.6)
[2022-11-06 14:57] LABS: CPK CREATINE PHOSPHOKINASE 78 U/L (34-145); MB/CK RELATIVE INDEX 1.28 (< OR =4)
[2022-11-06 14:58] LABS: BLOOD UREA NITROGEN 11 MG/DL (9-23); CALCIUM LEVEL 8.9 MG/DL (8.5-10.1); CARBON DIOXIDE LEVEL 26 MMOL/L (20-31); CHLORIDE LEVEL 106 MMOL/L (98-107); CREATININE FOR GFR 0.67 MG/DL (0.55-1.30); GLOMERULAR FILTRATION RATE > 60.0 (>60); GLUCOSE, FASTING 86 MG/DL (60-100); POTASSIUM SERUM 4.2 MMOL/L (3.5-5.1); SODIUM LEVEL 139 MMOL/L (136-145)
[2022-11-06 14:59] LABS: FREE T4 0.99 NG/DL (0.89-1.76)
[2022-11-06 15:00] LABS: THYROID STIMULATING HORMONE 1.507 uIU/ML (0.55-4.78)
[2022-11-06 15:01] LABS: HCG, SERUM QUALITATIVE NEGATIVE (NEGATIVE)
[2022-11-06 16:27] LABS: MAGNESIUM LEVEL 1.7 MG/DL (1.8-2.4)
[2022-11-06] MEDS ORDERED: PEPC1TAB5 PO (17:21)
[2022-11-06 17:29] VITALS: BP 118/76
== END 2022-11-06 17:32 | disposition home or self-care (01) ==
LOC: M ED 12:23
DX: R07.9 Chest pain, unspecified (principal); R51.9 Headache, unspecified; Z88.0 Allergy status to penicillin; Z79.1 Long term (current) use of non-steroidal anti-inflammatories (NSAID); Z79.899 Other long term (current) drug therapy
CPT/HCPCS: 36415; 70450; 71045; 80048; 82550; 82553; 83735; 84439; 84443; 84484; 84703; 85025; 85379; 85610; 85730; 93005; 96361; 96374; 96375; 99284; J1100; J1885; J2765